=== PATIENT | female | born 1950 | race Caucasian/White ===

== ENCOUNTER 2017-03-28 10:12 | Emergency (ER) | payer MEDICARE ==
[2017-03-28 10:23] VITALS: BP 180/106
[2017-03-28] MEDS ORDERED: fentaNYL PF 100 MCG/2 ML VIAL IV PRN (10:45)
[2017-03-28] MEDS ORDERED: KETOROLAC 30 MG/ML VIAL. IV ONE (11:15)
--- NOTE | 2017-03-28 11:28 | PHYS DOC ---
General Chief Complaint: LOWER BACK PAIN OR INJURY Stated Complaint: TAILBONE PAIN Time Seen by MD: 10:18 Source: patient, old records Exam Limitations: no limitations Problems: History of Present Illness Initial Comments Pt is 67/F to ED c/o injuries from fall. Pt states two days ago (Wednesday) she was seen at [facility] for PSBO evaluation. I did ask her how her abdominal symptoms were doing and she said she had not had a bowel movement yet but was passing gas and she wasn't having any further symptoms currently. She says while there as she was preparing to be discharged she slipped on a liquid causing her legs slid out from under her falling to her buttocks initially, then backwards hitting her head. No LOC, pt cried out for assistance and staff reportedly helped her up. She reports that she was injured and "no one did anything." Records obtained by the staff, who reports that the patient signed out AMA after "acting out" resulting in code allen. Pt says immediately after the fall she had a very mild global RODRIGUEZ, aching in quality, no n/v/focal weakness/photophobia/confusion. Her headache resolved within just a few moments and she says it hasn't bothered her since that time. She says she is angry that no one did any x-rays on her head due to the fall. She also denies any neck pain or stiffness. RODRIGUEZ symptoms resolved within minutes pt denies recurrance of those symptoms. Pt reportedly called EMS twice today refusing transport once but is here today for 10/10 severe sharp tail bone pain she says is from the fall. She denies related leg weakness or other leg symptoms, incontinence, or saddle anesthesia. No low back pain or difficulty with walking. Sx worse with certain seated positions better with rest/positional change, 100mcg fentanyl IN en route to ED. Pt has extensive PMH but says she stopped taking all medications two years ago. She is admittedly noncompliant and we did discuss the fact that not treating her blood pressure and other chronic illnesses will not only shorten her life but also increase her times in the hospitals and overall decreased quality of her life. She understands a stroke could be devastating but refuses to comply with medical care. Her blood pressure is 180/106 on arrival she denies chest pain or trouble breathing with it. She is demanding pain medications upon arrival stating her discomfort is 10 out of 10 localized to the tailbone only. She denies passing any blood rectally and denies any pain other than when she is sitting in certain positions. Occurred: other (2 days ago) Severity: severe Injuries/Pain Location: head, pelvis Context: slipped Loss of Consciousness: no loss of consciousness Modifying Factors: worse with jarring, worse with movement, improves with rest Associated Symptoms: headache (2 days ago for a short time after the fall only) , other Allergies: Coded Allergies: Penicillins (Verified Allergy, Unknown, 03/28/17) erythromycin base (Verified Allergy, Unknown, 03/28/17) morphine (Verified Allergy, Unknown, 03/28/17) tetracycline (Verified Allergy, Unknown, 03/28/17) Past Medical History Medical History: other (hypothyroidism, hypertension, are known prior conditions patient is not forthcoming with other elements of her past medical history and no old records exist as this is her first time at this facility) Surgical History: noncontributory Social History Smoker: cigarettes Alcohol: occasionally Drugs: none Review of Systems Constitutional: denies chills, denies fever, denies malaise Eyes: denies blurred vision, denies pain, denies photophobia Ears, Nose, Mouth, Throat: denies ear pain, denies ear discharge, denies nose pain, denies nose discharge, denies epistaxis Respiratory: denies cough, denies shortness of breath, denies wheezing Cardiovascular: denies chest pain, denies palpitations, denies syncope Gastrointestinal: see HPI Genitourinary: denies dysuria, denies frequency, denies hematuria Musculoskeletal: see HPI, denies back pain, denies joint swelling, denies neck pain Psychiatric/Neurological: see HPI, denies numbness, denies paresthesia, denies weakness Physical Exam General Appearance: moderate distress (moaning as if in severe pain) Head: no evidence of injury (head is normocephalic/atraumatic. Negative Russell sign, negative raccoon eyes, no palpable facial or scalp swelling or tenderness) Eyes: bilateral eye normal inspection, bilateral eye PERRL, bilateral eye EOMI Ears, Nose, Mouth, Throat: hearing grossly normal, no evidence of ENT injury ( no ear or nose discharge no fluid behind TMs bilaterally), no dental injury Neck: non-tender, full range of motion Cardiovascular/Respiratory: normal peripheral pulses, no respiratory distress Gastrointestinal: non tender, soft Genital/Rectal: other (patient was placed on a bed zamora by the RN reports no bruising or abrasions or swelling were present. 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 PHYSICIAN: QUYNH CHENEY DO REASON: fall, tailbone pain PROCEDURE: SACRUM & COCCYX 3V AP and lateral sacrum/coccyx radiographs 03/28/2017 Clinical history: Fall with tailbone pain. Two AP and a lateral digital radiographs of the sacrum/coccyx were obtained. No sacral or coccygeal fracture is seen. The patient is status post L5 laminectomy. Moderate degenerative changes are seen involving the lower lumbar spine. Mild to moderate degenerative changes are seen involving both SI joints and both hips. Impression: No sacral or coccygeal fracture is seen. DICTATED AND SIGNED BY: VENKATESH KHAN MD DATE: 03/28/17 1133 CC: QUYNH CHENEY DO ~ PATIENT: GERDA ROQUE ACCOUNT: [id number] : 1950 LOCATION: ER AGE: 67 SEX: F EXAM STATUS: PRE ER ORD. PHYSICIAN: QUYNH CHENEY DO REASON: fall, buttock pain PROCEDURE: HIP BILATERAL WITH PELVIS AP pelvis to include AP and lateral radiographs of both hips 03/28/2017 Clinical history: The patient fell 2 days ago with pelvic and bilateral hip pain. An AP digital radiograph of the pelvis was obtained. AP and lateral digital radiographs of both hips were obtained. No pelvic bone fracture is seen. No fracture or dislocation of either hip is noted. The patient is status post lower lumbar laminectomy. Moderate degenerative changes are seen involving the mid and lower lumbar spine. Mild to moderate degenerative changes are seen involving both hips. Impression: No acute fracture or dislocation is seen. DICTATED AND SIGNED BY: VENKATESH KHAN MD DATE: 03/28/17 1210 CC: QUYNH CHENEY DO ~ ED Course: The patient refused Toradol and continued to complain of coccygeal pain unchanged with treatment while her images were obtained. I checked on her multiple times each time finding her to look as if she was more comfortable but when I went into the room she would begin moaning and writhing. I discussed the findings of her images and tried to reassure her that there was no fracture. At that point she became angry and said she felt as if she were being discriminated against because she has a pending lawsuit against another hospital. I advised her that I was not aware of her legal situation and I would have no bearing on my treatment. I discussed discharge home with use of an assistive device and [id number] doughnut cushion or sofa cushion as needed. I discussed both prescription and [id number] pain medications. I discussed close PCP follow-up with possible specialty referral or other imaging modalities not available in the emergency department should her symptoms persist or worsen. I discussed signs and symptoms to monitor for an emergent indications for return to the facility. I discussed the need for her to establish with a primary care physician to manage her chronic medical conditions as well as smoking cessation. She did express understanding and agree to return to the emergency department if necessary. Departure Time of Disposition: 13:30 Disposition: 01 HOME, SELF-CARE Diagnosis: coccydynia, fall Condition: GOOD Patient Instructions: Fall Prevention and Home Safety, [id number] Additional Instructions: Rest, no strenuous activity. Use an assistive device with standing and walking as needed. Aggressive hydration with gatorade, water. OTC ibuprofen for baseline discomfort. Rx: norco 7.5mg #10 Follow up with a doctor in 1-2 days for recheck. Return to ED with new or changing symptoms. QUYNH CHENEY DO Mar 28, 2017 11:28
--- NOTE | 2017-03-28 11:37 | RAD ---
AP and lateral sacrum/coccyx radiographs 03/28/2017 Clinical history: Fall with tailbone pain. Two AP and a lateral digital radiographs of the sacrum/coccyx were obtained. No sacral or coccygeal fracture is seen. The patient is status post L5 laminectomy. Moderate degenerative changes are seen involving the lower lumbar spine. Mild to moderate degenerative changes are seen involving both SI joints and both hips. Impression: No sacral or coccygeal fracture is seen.
--- NOTE | 2017-03-28 12:15 | RAD ---
AP pelvis to include AP and lateral radiographs of both hips 03/28/2017 Clinical history: The patient fell 2 days ago with pelvic and bilateral hip pain. An AP digital radiograph of the pelvis was obtained. AP and lateral digital radiographs of both hips were obtained. No pelvic bone fracture is seen. No fracture or dislocation of either hip is noted. The patient is status post lower lumbar laminectomy. Moderate degenerative changes are seen involving the mid and lower lumbar spine. Mild to moderate degenerative changes are seen involving both hips. Impression: No acute fracture or dislocation is seen.
== END 2017-03-28 14:05 | disposition home or self-care (01) ==
LOC: ER 10:12
DX: S39.92XA Unspecified injury of lower back, initial encounter (principal); M53.3 Sacrococcygeal disorders, not elsewhere classified; E03.9 Hypothyroidism, unspecified; I10 Essential (primary) hypertension; F17.210 Nicotine dependence, cigarettes, uncomplicated; Z88.0 Allergy status to penicillin; Z88.1 Allergy status to other antibiotic agents; Z88.5 Allergy status to narcotic agent; W01.198A Fall on same level from slipping, tripping and stumbling with subsequent striking against other object, initial encounter; Y93.89 Activity, other specified; Y99.8 Other external cause status; Y92.239 Unspecified place in hospital as the place of occurrence of the external cause
CPT/HCPCS: 72220; 73521; 96374; 99284; J3010